=== PATIENT | female | born 1990 | race Caucasian/White ===

== ENCOUNTER 2017-11-21 02:11 | Emergency (ER) | payer BC ==
[~2017-11-21] VITALS: Ht 162.6 cm; Wt 118.3 kg
[2017-11-21] MEDS ORDERED: HYDROcodone/APAP 5/325 TABLET ONE ×3 (02:54→03:27)
[2017-11-21] MEDS ORDERED: BUPIVACAINE 0.25% INFIL ONE (03:00)
[2017-11-21] MEDS ORDERED: LIDOCAINE-MPF 1%, 5ML INFIL ONE (03:00)
[2017-11-21] MEDS ORDERED: LIDOCAINE-MPF 1%, 2ML INFIL ONE (03:00)
[2017-11-21] MEDS ORDERED: LIDOCAINE-MPF 1%, 2ML ONE (03:00)
[2017-11-21] MEDS ORDERED: HYDROcodone/APAP 5/325 TABLET PO ONE ×2 (03:00→03:30)
[2017-11-21] MEDS ORDERED: BUPIVACAINE 0.25% ONE (03:00)
[2017-11-21 03:30] VITALS: BP 136/81
== END 2017-11-21 03:33 | disposition home or self-care (01) ==
LOC: ED 03:00
DX: K08.89 Other specified disorders of teeth and supporting structures (principal)
CPT/HCPCS: 64400; 99284; J3490

== ENCOUNTER 2020-02-17 08:07 | Emergency (ER) | payer BC, OTHER ==
[~2020-02-17] VITALS: Ht 162.6 cm; Wt 135.4 kg
[2020-02-17 08:18] VITALS: BP 141/83
--- NOTE | 2020-02-17 08:43 | NUR ---
THIS IS A 29 YO F W/ C/O LT KNEE PAIN AFTER FALLING IN THE SHOWER THIS MORNING. PT CHANGED INTO GOWN AND PROVIDED W/ ICE PACK FOR COMFORT. CMS INTACT. PT REPORTS SHE CANNOT BARE WEIGHT ON LT LEG. AT BEDSIDE FOR ED EVAL.
[2020-02-17] MEDS ORDERED: ACETAMINOPHEN 325 MG TABLET ONE (08:51)
[2020-02-17] MEDS ORDERED: IBUPROFEN 600 MG TABLET ONE (08:51)
[2020-02-17] MEDS ORDERED: ACETAMINOPHEN 325 MG TABLET PO ONE (09:00)
[2020-02-17] MEDS ORDERED: IBUPROFEN 600 MG TABLET PO ONE (09:00)
--- NOTE | 2020-02-17 10:48 | NUR ---
Patient given discharge instructions and they have confirmed that they understand the instructions. Patient ambulatory with crutches.
== END 2020-02-17 10:47 | disposition home or self-care (01) ==
LOC: ED 08:46
DX: S83.412A Sprain of medial collateral ligament of left knee, initial encounter (principal); M25.362 Other instability, left knee; X50.1XXA Overexertion from prolonged static or awkward postures, initial encounter; Y93.89 Activity, other specified; Y92.098 Other place in other non-institutional residence as the place of occurrence of the external cause; Y99.8 Other external cause status
CPT/HCPCS: 29505; 99283